=== PATIENT | female | born 1965 | race Asian ===

== ENCOUNTER 2020-05-28 10:58 | Outpatient (CLI) | payer OTHER | END 2020-05-28 20:12 | disposition home or self-care (01) | LOC: MRI 10:58 | PROVIDERS: ATTEND Otolaryngology | DX: H90.2 Conductive hearing loss, unspecified (principal) | CPT/HCPCS: 36415; 82565; 84520; A9576 ==

== ENCOUNTER 2022-05-05 17:17 | Outpatient (CLI) | payer OTHER | END 2022-05-05 19:45 | disposition home or self-care (01) | LOC: RAD 17:17 | PROVIDERS: ATTEND Nurse Practitioner Primary Care | DX: M25.531 Pain in right wrist (principal) ==

== ENCOUNTER 2022-05-28 08:53 | Outpatient (CLI) | payer OTHER | END 2022-05-28 19:41 | disposition home or self-care (01) | LOC: MAMMO 08:53 | PROVIDERS: ATTEND Nurse Practitioner Primary Care | DX: Z12.31 Encounter for screening mammogram for malignant neoplasm of breast (principal) ==

== ENCOUNTER 2022-06-02 14:27 | Outpatient (CLI) | payer OTHER | END 2022-06-02 19:05 | disposition home or self-care (01) | LOC: MRI 14:27 | PROVIDERS: ATTEND Nurse Practitioner Family | DX: M25.531 Pain in right wrist (principal) ==